=== PATIENT | female | born 1975 | race Two or more races ===

== ENCOUNTER → 2022-05-22 13:00 | Outpatient (BNVA) | payer OTHER, SELFPAY | PROVIDERS: PCP Internal Medicine Hematology & Oncology; Visit Provider Student in an Organized Health Care Education/Training Program | DX: R76.8 Other specified abnormal immunological findings in serum (principal); R41.3 Other amnesia | CPT/HCPCS: 99202 ==

== ENCOUNTER 2025-04-21 12:06 | Outpatient (AMB) | payer OTHER, SELFPAY ==
--- NOTE | 2025-04-21 12:24 | A.OFFVIS_ITS ---
Intake Visit Reasons: 6months f/u Allergies No Known Allergies Allergy (Verified 05/22/22 13:05) Medication List - Last Reconciled 04/21/25 by Odessa Limon MD aripiprazole 10 mg PO DAILY atorvastatin 20 mg PO DAILY buprenorphine-naloxone 4-1 mg (Suboxone) 1 film buccal Q24H buspirone 30 mg PO BID lamotrigine 150 mg PO BID lorazepam mg PO metformin ER 500 mg PO BID propranolol 60 mg PO BID sumatriptan succinate mg PO PRN tirzepatide (weight loss) (Zepbound) mg subcut zolpidem 10 mg PO BEDTIME PRN HPI Comments Details: This is a 50-year-old woman with a history of anxiety and depression, diabetes and hyperlipidemia who has noted intermittent jerky tremor in her hands, primarily on the leftsince early 2023.? It comes and goes but is now noticeable most days.? It is more noticeable if she is stressed.? There is no family history of tremor.? She recently started propranolol 60 mg a day.? She has been on lamotrigine, and Abilify for 2 years for her psychiatric diagnosis.? She has no mobility problems.? There is no rest tremor. [facility] Medical History (Updated 04/21/25 @ 12:29 by Odessa Limon MD) Tremor Lumbar disc disease Migraines GERD (gastroesophageal reflux disease) Tobacco abuse Chronic back pain Opiate dependence Anxious depression Nephrolithiasis Myalgia Palpitations Abnormal mammogram Surgical History Insertion of Nexplanon Abnormal mammogram Hx of section Family History Mother Bladder cancer Hypertension Anxiety and depression Maternal Grandfather Throat cancer Coronary artery disease Maternal Grandmother Diabetes Hypertension Sister Diabetes Anxiety and depression Maternal Aunt Multiple sclerosis Social History Household Members: Spouse Alcohol intake: current Alcohol intake frequency: holidays/special occasions only Patient Tobacco Use Status: Current everyday Tobacco user Tobacco use type: Cigarette Cigarette Packs Per Day: 0.5 Current occupational status: employed Current occupation: collections agent Review of Systems Const Details: Sleep:? Difficulty getting to sleepadmits.? Difficulty maintaining sleepadmits.? Urge to move legsdenies.? Teeth grindingdenies.? Shouting or Kicking during sleep denies.? Abnormal behavior during sleepdenies.? Excessive sleepdenies.? Snoring admits.? Daytime sleepinessdenies. ???General/Constitutional:? Change in appetitedenies.? Chillsdenies.? Fatigueadmits.? Feverdenies.? Weight gaindenies.? Weight lossdenies. ???Ophthalmologic:? Blurred visionadmits.? Diminished visual acuitydenies. ???ENT:? Stuffinessdenies.? Decreased hearingdenies.? Dry mouthdenies.? Ear paindenies.? Nosebleeddenies.? Ringing in the earsdenies.? Sinus paindenies.? Sore throat denies.? Swollen glandsdenies. ???Endocrine:? Cold intolerancedenies.? Excessive thirstdenies.? Frequent urinationdenies.? Heat intolerancedenies. ???Respiratory:? Shortness of breathdenies.? Chest paindenies.? Coughdenies. ???Breast:? Breast lumpdenies.? Nipple dischargedenies. ???Cardiovascular:? Chest pain at restdenies.? Chest pain with exertiondenies.? Claudicationdenies .? Dizzinessdenies.? Fluid accumulation in the legsdenies.? Irregular heartbeat denies.? Palpitationsdenies. ???Gastrointestinal:? Abdominal paindenies.? Constipationdenies.? Diarrheadenies.? Difficulty swallowingdenies.? Heartburnadmits.? Nauseadenies.? Rectal bleedingdenies. ???Hematology:? Easy bruisingdenies.? Prolonged bleedingdenies. ???Genitourinary:? Frequent urinationdenies.? Urgencydenies.? Incontinencedenies.? Erectile Dysfunctiondenies. ???Musculoskeletal:? Neck painadmits.? Back painadmits.? Muscle achesadmits.? Painful jointsadmits.? Sciaticadenies.? Weaknessdenies. ???Podiatric:? Difficulty walkingdenies.? Foot numbnessdenies. ???Neurologic:? Difficulty swallowingdenies.? Balance difficultydenies.? Coordinationnormal.? Difficulty speakingdenies.? Dizzinessadmits.? Faintingdenies.? Gait abnormality denies.? Headacheadmits.? Loss of strengthdenies.? Loss of use of extremity denies.? Low back paindenies.? Memory lossdenies.? Seizuresdenies.? Ticsdenies.? Tingling/Numbnessadmits.? Transient loss of visiondenies.? Tremoradmits. ???Psychiatric:? Anxietyadmits.? Auditory/visual hallucinationsdenies.? Delusionsdenies.? Depressed moodadmits.? Stressorsadmits.? Substance abusedenies.? Suicidal thoughtsdenies. Physical Exam Neuro Other: Neurological: Abnormal neurological findings:??minimal intermittent high frequency low amplitude tremor noted in the extended hand position. No s/o PD.?Mental Status:??alert and oriented X 3,?Normal attention, orientation, memory and affect.?Cranial Nerves:??Pupils are equal, round and reactive to light. Fundoscopy shows normal disc bilaterally. External occular muscles are intact. Visual pederson are full, no ptosis. Face is symmetrical, no facial weakness or droop. Facial sensations are normal. Tongue protrudes in midline. Palate elevates symmetrically. Shoulder shrugging is normal..?Motor Examination:??Normal muscle tone, bulk and strength,?No atrophy or fasciculations,?No drift of the extended upper extremities,?Deep tendon reflexes are 2+?,?Plantars are flexor?.?Motor Strength:?Proximal Muscles (out of 5):5 Distal Muscles (out of 5):5Neck Flexors (out of 5):5Neck Extensors (out of 5):5 Deltoid (out of 5):5Biceps (out of 5):5Triceps (out of 5):5Serratus Anterior (out of 5):5Wrist Extensors (out of 5):5APB (out of 5):5Finger Spread (out of 5):5Ileopsoas (out of 5):5Quadriceps (out of 5):5Hamstrings (out of 5):5Tibialis Anterior (out of 5):5Peronei (out of 5):5EDB (out of 5):5Gastrocnemius (out of 5):5Straight Leg Raising:??90 degrees.?Sensory Exam:??Normal light touch, temperature, pinprick, vibration and joint-position sensations?,?Rhomberg sign is absent.?Coordination:??no ataxia,?no titubation,?lhiyuy-uv-rqhs, epcq-caik-eyut test and rapid alternating movements were normal.?Gait Exam:??Within normal limits.?Cerebellar Signs:??Qjhdof-tu-xmam and bbjd-fn-kqau is normal,?no dysdiadochokinesia?.?Extrapyramidal System:??Tremor as above. No rigidity with normal facial expressions,?No bradykinesia, no bradyphrenia. Normal arm swing and posture. No propulsion or retropulsion.?Speech:??Normal,?no dysphasia or dysarthria..? Mini Mental Status Exam: Level of Consciousness:??Alert.?Orientation:??Knows correct year, month, date, day and season,?Knows correct city, county and state. Knows correct location and floor.?Registration:??Able to register 3 objects.?Attention:??Serial 7's performed accurately.?Recall:??Able to recall 3 out of 3 objects.?Language:??Normal spontaneous speech, fluency, repetition,naming, comprehension, reading and writing.?Total Score:??30/30.? Assessment & Plan Assessment & Plan (1) Tremor: Comment: Essential tremor exacerbated by stress versus Abilify-induced tremor. Less likely from buspirone Code(s): R25.1 - Tremor, unspecified Category: Medical Plan Increase propranolol to 60 mg bid. Continue all other meds. Medications: New propranolol 60 mg PO BID 60 tabs 5RF 30 days Coding Level of Care Code Est Pt Level 4 (50199) Diagnoses Tremor R25.1
--- OUTSIDE RECORDS SUMMARY | 2025-04-21 14:54 | XMS_ITS | Encounter Summary ---
Author Organization [facility] Address [address] [place] [address] Care Team Providers Care Measuring Clerk Name Role Phone Javier Capellan MD Primary Care Provider [phone] Reason for Visit * Reason Onset Date Comments prior auth 04/15/2025 Encounter Details Date Type Department Care Team (Late st Contact Info) Description 04/15/2025 Telephone Internal Medicine - [facility] [address] [place] [address] Javier Capellan MD [address] [place] [id number] Social History Tobacco Use Types Packs/Day Years Used Date Smoking Tobacco: Every Day Cigarettes 1 36.1 Started: 03/28/1989 Smokeless Tobacco: Never Alcohol Use Standard Drinks/Week Comments Yes 0 (1 standard drink = 0.6 oz pur e alcohol) RARE Housing Instability Answer Date Recorde d Are you worried that in the next 2 months you may not have stable housing? No 07/29/2024 Food Access & Nutrition Answer Date Rec orded Do you have access to a vari ety of food including fruits and vegetables? Yes 07/29/2024 Access to Healthcare Answer Date Record ed Within the last 3 months, ho w many times did you visit the emergency department for your medical care? 0 07/29/2024 Health Literacy Answer Date Recorded How often do you need to hav e someone help you when you read instructions, pamphlets, or other written material from your doctor or pharmacy? Never 07/29/2024 Caregiver: How often do you need to have someone help you when you read instructions, pamphlets, or other written material from your doctor or pharmacy? Not on file 07/29/2024 Financial Risk Answer Date Recorded How hard is it for you to pa y for the very basics like food, housing, medical care, and air conditioning / heating? Not very hard 07/29/2024 Transportation Answer Date Recorded Has the lack of transportati on kept you from meetings, work, or from getting things needed for daily living? No Has the lack of transportati on kept you from medical appointments or from getting medications? No 07/29/2024 Social Isolation Answer Date Recorded How often do you feel lonely or isolated from ose around you? Never 07/29/2024 Food Risk Answer Date Recorded Within the past 12 months we worried whether our food would run out before we got money to buy more. Never true 07/29/2024 Within the past 12 months th e food we bought just didn't last and we didn't have money to get more. Never true 07/29/2024 Dependent Care Answer Date Recorded Do you need help finding or paying for care for your loved ones. For example, early childhood education specialist or elderly care for an older adult? No 07/29/2024 Education Answer Date Recorded Do you think completing more education or training, like finishing a GED, going to college, or learning a trade, would be helpful for you? No 07/29/2024 Employment and Income Answer Date Recor ded During the last four weeks, have you been actively looking for work? No 07/29/2024 Living Situation Answer Date Recorded What is your living situation? Unrecognized valu e 07/29/2024 Interpersonal Safety Answer Date Record ed Physical Abuse Unrecognized value 11/30/2024 Verbal Abuse Unrecognized value 11/30/2024 Comments No Sex and Gender Information Value Date Recorded Sex Assigned at Female 08/21/2024 10:30 AM EDT Legal Sex Female 11:22 AM EDT Gender Identity Female 08/21/2024 10:30 AM EDT Sexual Orientation Straight 08/21/2024 10 :30 AM EDT documented as of this encounter Progress Notes * Yesenia Giles MA - 04/15/2025 4:21 PM EST Images from the original note were not included. Approved Prior authorization approved Payer: [employer] [phone] Note from payer: CaseId:[id number];Status:Approved;Review Type:Prior Auth;Coverage Start Date:04/15/2025;Coverage End Date:06/09/2025; Approval Details Authorized from April 15, 2025 to June 09, 2025 Electronic appeal: Not supported Prior auth initiated by: Yesenia Giles MA * Yesenia Giles MA - 04/15/2025 3:46 PM EST Electronic pa requested * Javi Harris - 04/15/2025 3:40 PM EST Prior Authorization for Medication-do not complete and send this encounter unless you have the fax from the pharmacy. Is this a Cover My Meds request: Wilmer of Medication Zepbound Dose of Medication 15mg What is the RX # from the faxed refill? N/A How does patient take this med? Injection What Pharmacy did the fax come from: NA Pharmacy fax #: n?[id number] [facility] Information from fax: What Prescription Plan does the patient have? [facility] Patient is requesting urgent PA. She is due Saturday documented in this encounter Plan of Treatment Upcoming Encounters Date Type Department Care Team (Late st Contact Info) Description 04/27/2025 6:50 PM EST Appointment Radiology Department [address] [address] 06/01/2025 1:00 PM EST Office Visit Internal Medicine - [address] [address] Javier Capellan MD [address] [place] [address] 07/30/2025 4:00 PM EST Office Visit Internal Medicine - [address] [place] [address] Javier Capellan MD [address] [place] [address] documented as of this encounter Visit Diagnoses Not on filedocumented in this encounter Additional Health Concerns Assessment Noted Time PHQ-9 Depression Total Score: 4 07/29/19 25 11:46 AM EST documented as of this encounter Care Teams Measuring Clerk Relationship Specialty Start Date End Date Javier Capellan MD [address] [place], [place] [address] [address] PCP - General Internal Medicine 04/15/24 documented as of this encounter
--- OUTSIDE RECORDS SUMMARY | 2025-04-21 14:55 | XMS_ITS | Continuity of Care Document ---
Author Organization [place] [facility], [facility] Address [address] [place] [address] Care Team Providers Care Professor Of Pathology Name Role Phone BEBA ROJAS Primary Care Provider Assessment No assessment recorded. Plan of Treatment Reminders Order Date Submit Date Provider Last Modified By Organization Details Last Modified Time Details Appointments None record ed. Lab None record ed. Referral None record ed. Procedures None record ed. Surgeries None record ed. Imaging None record ed. Medication Orders None record ed. Patient TargetsNo targets recorded. Patient InstructionsNo instructions recorded. Reason for Referral None Reported. Problems Name Problem SNOMED Code Status Onset Date Resolution Date Notes Provider Name and Address Organization Details Recorded Time Mass of neck 348073430 Active 2021 Localized swelling, mass and lump, neck; Note: Date Diagnosed: 11/17/2021 4:43 PM (R22.1) Not Available [facility] 4 02:42:17 Neck swelling 863027888 Active 2021 Localized swelling, mass and lump, neck; Note: Date Diagnosed: 11/17/2021 4:43 PM (R22.1) Not Available [facility] 4 02:42:17 Posterior rhinorrhe a 70537083 Active 2021 Postnasal drip; Note: Date Diagnosed: 01/22/2022 5:47 AM (R09.82) Not Available [facility] 4 02:42:12 Tobacco user 067515044 Active 2021 Tobacco use; Note: Date Diagnosed: 01/22/2022 5:47 AM (Z72.0) Not Available [facility] 4 02:42:17 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; Note: Date Diagnosed: 01/22/2022 5:46 AM (D11.0) Not Available [facility] 4 02:42:18 Chronic rhinitis 01720406 Active 2021 Chronic rhinitis; Note: Date Diagnosed: 01/22/2022 5:46 AM (J31.0) Not Available [facility] 4 02:42:12 Edema of uvula 323619010 Active 2024 ROMELIA ZAMORANO MD [address] [place] [address],[place] [address], [place], [address] , [place] [facility] 5 15:46:20 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 ROMELIA ZAMORANO MD [address] [place] [address],[place] [address], [place], [address] , [place] [facility] 15:46:59 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 Procedures Surgical History Date Name Laterality Status Provider Name and Address Organization Details Recorded Time 12/01/19 25 parotidectomy completed MD Mamadou GARDUNO [facility],[place] [address] [place], [address], [place] [facility] 11/30/2024 10:19:00 08/18/19 25 Biopsy Oropharynx completed MD Mamadou GARDUNO [facility],[place] [address] [place], [address], [place] [facility] 08/19/2024 11:01:51 Imaging Results None recorded. Procedure Notes None recorded. Medical Equipment None Reported. Allergies No known drug allergies Medications Name Sig Start Date Stop Date Status Note LastModified by Organization Details LastModified Time amoxicill in 500 mg capsule 08/17 completed Not Available Not Available Not Available atorvasta tin 40 mg tablet TAKE 1 TABLET BY MOUTH EVERY DAY active Not Available Not Available No t Available lamotrigi ne 150 mg tablet TAKE 1 TABLET BY MOUTH TWICE A DAY active Not Available Not Available No t Available trazodone 50 mg tablet TAKE 1 TABLET BY MOUTH NIGHTLY NEEDED 08/17 completed Not Available Not Available Not Available azithromy gautam 250 mg tablet TAKE 2 TABLETS BY MOUTH TODAY, THEN TAKE 1 TABLET DAILY FOR 4 DAYS DIRECTED 08/17 completed Not Available Not Available Not Available ibuprofen 800 mg tablet 08/17 completed Medicati on ID: [id number] B rand Name: ibuprofe n Send Method: E-Prescr ibed Sub s Allowed: subs OK Medic ationGen ericName : ibuprofe n Not Available Not Available Not Available propranol ol ER 60 mg capsule,2 4 hr,extend ed release TAKE 1 CAPSULE BY MOUTH EVERY DAY 12/07 completed Not Available Not Available Not Available glipizide ER 5 mg tablet, extended release 24 hr TAKE 1 TABLET BY MOUTH WITH MEALS DAILY 08/17 completed Not Available Not Available Not Available bupropion HCl SR 100 mg tablet,12 hr sustained -release 08/17 completed Medicati on ID: [id number] B rand Name: bupropio n HCl Send Method: E-Prescr ibed Sub s Allowed: subs OK Medic ationGen ericName : bupropio n HCl Not Available Not Available Not Available lorazepam 2 mg tablet TAKE 1 TABLET BY MOUTH TWICE A DAY NEEDED FOR ANXIETY FOR UP TO 7 DAYS active Not Available Not Available No t Available buspirone 10 mg tablet TAKE 2 TABLETS BY MOUTH 3 TIMES A DAY 12/07 completed Not Available Not Available Not Available propranol ol ER 80 mg capsule,2 4 hr,extend ed release TAKE 1 CAPSULE BY MOUTH EVERY DAY active Not Available Not Available No t Available gabapenti n 100 mg capsule Take 1 capsule nightly, can titrate to 3 capsules as tolerate d. 2024 active Not Available Not Available Not Avai lable zolpidem 10 mg tablet TAKE 1 TABLET BY MOUTH EVERY DAY AT BEDTIME NEEDED active Not Available Not Available No t Available metformin ER 500 mg tablet,ex tended release 24 hr DO NOT CRUSH, CHEW, OR SPLIT.TA KE 2 TABLETS 2 TIMES DAILY WITH MEAL active Not Available Not Available No t Available nicotine 7 mg/24 hr daily transderm al patch PLACE 1 PATCH ON THE SKIN 1 TIME EACH DAY AT THE SAME TIME. active Not Available Not Available No t Available buspirone 15 mg tablet 2021 active Medicati on ID: [id number] B rand Name: buspiron e Send Method: E-Prescr ibed Sub s Allowed: subs OK Medic ationGen ericName : buspiron e Not Available Not Available Not Available oxycodone 5 mg tablet Take 1-2 tablets every 8 hours as needed for breakthr ough pain for 2 days 2024 active Not Available Not Available Not Avai lable aripipraz ole 10 mg tablet TAKE 1 TABLET BY MOUTH EVERY DAY active Not Available Not Available No t Available chlorhexi dine gluconate 0.12 % mouthwash 08/17 completed Not Available Not Available Not Available oxycodone 10 mg tablet 08/17 completed Not Available Not Available Not Available buprenorp lópez 8 mg-naloxo ne 2 mg sublingua l film active Not Available Not Available Not Available Ozempic 1 mg/dose (4 mg/3 mL) subcutane ous pen injector INJECT 1 MG UNDER THE SKIN EVERY 7 (SEVEN) DAYS. 08/17 completed Not Available Not Available Not Available Wegovy 0.25 mg/0.5 mL subcutane ous pen injector INJECT 0.25MG INTO THE SKIN ONE TIME PER WEEK 08/17 completed Not Available Not Available Not Available Ozempic 0.25 mg or 0.5 mg (2 mg/3 mL) subcutane ous pen injector INJECT 0.25MG INTO THE SKIN ONE TIME PER WEEK 08/17 completed Not Available Not Available Not Available Zepbound 10 mg/0.5 mL subcutane ous pen injector INJECT 10 MG UNDER THE SKIN EVERY 7 DAYS active Not Available Not Available No t Available Zepbound 5 mg/0.5 mL subcutane ous pen injector INJECT 5 MG SUBCUTAN EOUSLY EVERY 7 DAYS 12/07 completed Not Available Not Available Not Available Zepbound 2.5 mg/0.5 mL subcutane ous pen injector INJECT 2.5 MG SUBCUTAN EOUSLY EVERY 7 DAYS 09/07 completed Not Available Not Available Not Available Zepbound 12.5 mg/0.5 mL subcutane ous pen injector INJECT 12.5 MG UNDER THE SKIN EVERY 7 DAYS. active Not Available Not Available No t Available Zepbound 7.5 mg/0.5 mL subcutane ous pen injector INJECT 7.5 MG UNDER THE SKIN EVERY 7 DAYS 12/07 completed Not Available Not Available Not Available Vitals None Recorded Social History None recorded. Functional Status None recorded. Mental Status None recorded. Family History Nothing Reported. Medical History Condition Response Anxiety Y Depression Y Gynecological HistoryNo gynecological history recorded. 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 Incision is well healed. 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 She may follow up as needed. Health Concerns Section Related Observation LastModified by Organization Detai ls LastModified Time None Recorded Concern Status LastModified by Organization Details LastModified Time None Recorded Payers Encounter Date Sequence Insurance Name Policy Number Policy Mckenzie Covered Member ID Mckenzie Member ID Guarantor Name 02/15/2025 1 [facility] (O) [id number] Criselda Morris [id number] Criselda Morris Notes Date Note Type Note Provider Name and Address Organization Details Recorded Time 02/15/2025 text/html Still some numbness in the neck along the neckPain is better Did not start the gabapentin due to capsule which gets stuck ROMELIA ZAMORANO MD [address] [place] [address],[place] [address], [place], [address], [place] [facility] 02/15/2025 16:50:29 OBGyn Episode No OBEpisode recorded.
--- OUTSIDE RECORDS SUMMARY | 2025-04-21 14:55 | XMS_ITS | Clinical Summary ---
Author Organization [facility] Address [address] [place] [address] [place] [address] Phone Care Team Providers Care Viscosity Tester Name Role Phone Ronak Tinoco MD, ELOY Primary Care Provide r Social History Tobacco Use Types Packs/Day Years Used Date Smoking Tobacco: Never Assessed Education Answer Date Recorded Are you interested in more education? Not on edi e 10/06/2022 Are you concerned about learning? Not on file 10/06/2022 No 10/06/2022 No 10/06/2022 Digital Access Answer Date Recorded No 11/06/2022 No 11/06/2022 Reliable internet access at home? Not on file 11/06/2022 Device with a working camera? Not on file Comments Unknown Sex and Gender Information Value Date Recorded Sex Assigned at Not on file Legal Sex Female 2:50 PM EDT Gender Identity Not on file Sexual Orientation Not on file Plan of Treatment Not on file Medical Devices Not on file [place] [address] [place] [address] [facility] [email or web address] [email or web address] Prepay TechnologiesMOHAWK VALLEY GENER[facility]ITAL[facility] Space-Time InsightMOHAWK VALLEY GENERAL HOSPITALO [place] [facility]OUNT MORRISPlay It GamingSAN CARL[facility] ACO [facility] Space-Time InsightMOHAWK VALLEY GENERAL HOSPITAL[facility] [place] [facility] MORRISENSE [employer] ACO Care Teams Viscosity Tester Relationship Specialty Start Date End Date Ronak Tinoco MD, ELOY [address] [place] [id number] [email or web address] PCP - General Interventional Radiology 12/20/21 Additional Source Comments The information contained in this document represents components of the legal health record. It is not the complete legal health record.[facility]
--- OUTSIDE RECORDS SUMMARY | 2025-04-21 14:55 | XMS_ITS | Data Portability ---
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 She chose to observe given the small size of the tumor at that time. She is now interested in discussing surgery. 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 She is otherwise asymptomatic from this perspective and is not interested in surgical intervention of this at this time. [email or web address] Not available 09/07/2024 13:47:03 12/03/2024 12/03/2024 The patient is doing well following parotidectomy. The LUCIUS drain was removed today without difficulty. The patient was instructed to call the office for increased swelling, fever, tenderness, or drainage. Wound care was discussed. I recommended avoidance of strenuous activity, heavy lifting or straining for 2 weeks. Pathology consistent with Warthin tumor. Patient requested refill of Oxycodone for breakthrough pain and prescription was provided. MassPat was reviewed. Finish antibiotics if prescribed and follow up as scheduled. All questions were answered. [email or web address] Not available 12/03/2024 16:16:38 12/07/2024 12/07/2024 The patient is doing well following parotidectomy. Sutures removed. Wound care was discussed. I recommended gentle neck stretching. Patient requested refill of Oxycodone for breakthrough pain and prescription was provided. [facility]Pat was reviewed. Follow up 1 month. [email or web address] Not available 12/08/2024 09:14:21 Plan of Treatment Reminders Order Date Submit Date Provider Last Modified By Organization Details Last Modified Time Details Appointments None recorded. Lab None recorded. Referral None recorded. Procedures None recorded. Surgeries parotidec rodríguez (SURG) 2024 025 [email or web address] Not available 12:56:[address], neck, w/ contrast 2024 025 [email or web address] [facility], [address], [address], [place], [address], 09:49:18 Medication Orders gabapenti n 100 mg capsule 2024 025 [facility], [address] [facility], [facility] [address], [place], [address], 14:30:37 oxycodone 5 mg tablet 2024 025 [facility], [address], [facility] [address], [place], [address], 16:01:27 oxycodone 5 mg tablet 2024 025 [id number], [address], [place], [address], 16:20:36 oxycodone 5 mg tablet 2024 025 [facility], [address] [facility], [address], [place], [address], 16:19:42 Patient TargetsNo targets recorded. Patient InstructionsNo instructions recorded. Reason for Referral None Reported. Results Created Date Observation Date Name Description Value Unit Range Abnormal Flag Note LastModifiedBy Organization Detail LastModifiedTime 09/25/1909/25/2024 PREP: EGFR W/CRE ATINI NE creatinine 0.68 mg/dL 0.57-1 .00 normal Not Available [facility] ([facility]) [address] [facility], [place], [address], 09/25/2024 09:10:30 09/25/19 25 09/25/2024 PREP: EGFR W/CRE ATINI NE eGFR 106 mL/mi n/1.7 3 >59 normal Not Available [facility] ([facility]) [address] [facility], [place], [address], 09/25/2024 09:10:30 09/25/19 25 09/25/2024 BUN BUN 11 mg/dL 6-24 normal Not Available [facility] ([facility]) [address] [facility], [place], [address], 09/25/2024 09:10:30 12/01/19 25 11/30/2024 TISSU E EXAM .note See Note Origi nal Order ing Provi deana: MARIANA GARCIA LUKE [facility] - Labor atory - [address], [address], [place] [id number] 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 - Lymph node with non-s pecif ic react ophelia guzman es and few inclu sions of saliv farnaz gland -type epith elium . - Parot id gland tissu e other andujar witho ut diagn ostic histo patho logic guzman e. - Inked speci men iris ns negat ophelia for tumor . Nando bell by Pradip Hernandez MD on 2024 at 8:[address] [facility] [address] [facility] [place], [address], 12/02/2024 08:53:39 12/01/19 25 11/30/2024 TISSU E EXAM gross description A. Neck, right paroti d: Label ed righ t par neck . Recei maryann in forma aung is a singl e, fairl y intac t, unori ented , 6 gram, 2.5 x 2.0 x 1.9 cm soft, yello w to red lobul ated porti on of tissu e, in keepi ng with saliv farnaz gland . The iris ns are inked blue and the speci men is seria lly secti oned seque ntial ly. The marisol guous cut surfa dickson show a christian to pale brown , circu mscri bed, focal ly cysti c, 1.7 x 1.4 x 1.2 cm mass which is less than 0.1 cm from the radia l surfa ce. The mass exude s minim al soft, brown , mucoi d mater ial. The minim al invol maryann tissu e is christian-y ellow to pink and glist ening . No other rock s are ident ified . There is a soft to rubbe ry, pink to red, 0.4 cm in great est diame ter attac hed lymph node. A digit al gross photo graph is taken . Repre senta tive secti ons are submi tted in five casse ttes. 1-4 nodul e in entir ety, one piece each 5-uni nvolv ed and one whole lymph node, two piece s TS Not Available [facility] [address] [place], [address], 12/02/2024 08:53:39 12/01/19 25 11/30/2024 TISSU E EXAM disclaimer Unles s other andujar speci fied, all tissu e is 10% NB forma aung fixed and paraf fin embed ded. Not Available [facility] [address] [place], [address], 12/02/2024 08:53:39 10/03/19 25 09/30/2024 CT, neck, soft tissu e, w/ contr ast No observ ation record ed. [facility] [place] [facility] [address] [address], [place], [address], 10/05/2024 14:20:46 12/01/19 25 11/30/2024 H&P No observ ation record ed. [facility] [address] [place], [address], 11/30/2024 11:01:58 12/01/19 25 11/30/2024 op note No observ ation record ed. [facility] [address] [facility] [place], [address], 11/30/2024 11:01:58 Result Notes None recorded. Problems Name Problem SNOMED Code Status Onset Date Resolution Date Notes Provider Name and Address Organization Details Recorded Time Mass of neck 678568949 Active 2021 Localized swelling, mass and lump, neck; Note: Date Diagnosed: 11/17/2021 4:43 PM (R22.1) Not Available [facility] 4 02:42:17 Neck swelling 499329791 Active 2021 Localized swelling, mass and lump, neck; Note: Date Diagnosed: 11/17/2021 4:43 PM (R22.1) Not Available [facility] 4 02:42:17 Posterior rhinorrhe a 54851154 Active 2021 Postnasal drip; Note: Date Diagnosed: 01/22/2022 5:47 AM (R09.82) Not Available [facility] 4 02:42:12 Tobacco user 190801206 Active 2021 Tobacco use; Note: Date Diagnosed: 01/22/2022 5:47 AM (Z72.0) Not Available [facility] 4 02:42:17 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 - [facility] 15:46:59 Neoplasm of parotid gland 440936028 Active 2024 ROMELIA ZAMORANO MD [address] [place] [address],[place] [address], [place], [address] , [facility] - [facility] 11:36:37 Postopera tive pain 219294137 Active 2024 ROMELIA ZAMORANO MD [address] [place] [address],[place] [address], [place], [address] , [facility] - [facility] 10:19:18 Problem Notes None recorded. Procedures Surgical History Date Name Laterality Status Provider Name and Address Organization Details Recorded Time 12/01/19 25 parotidectomy completed ROMELIA ZAMORANO MD [address] [place] [address],[place] [address], [place], [address], [facility] - [facility] 11/30/2024 10:19:00 08/18/19 25 Biopsy Oropharynx completed ROMELIA ZAMORANO MD [address] [place] [address],[address], [address], [facility] - [facility] 08/19/2024 11:01:51 Imaging Results None recorded. Procedure [...] mg tablet 08/17 completed Medicati on ID: [id number] B rand Name: ibuprofe n Send Method: [...] sustained -release 08/17 completed Medicati on ID: [id number] B rand Name: bupropio n HCl Send [...] mg tablet 2021 active Medicati on ID: [id number] B rand Name: buspiron e Send Method: [...] Not Available Not Available Not Available Vitals Date Recorded Body height Body mass index (BMI) Body weight Provider Name and Address Organization Details Last Updated DateTime 09/07/2024 162.56 cm 28.7 kg/m2 18363.93 g Criselda Eden MD - [facility] 09/07/2024 11:29:58 Date Recorded Body height Body mass index (BMI) Body weight Provider Name and Address Organization Details Last Updated DateTime 12/03/2024 162.56 cm 27.5 kg/m2 39647.78 g Leonela Simpson MD - [facility] 12/03/2024 15:11:37 Date Recorded Body height Body mass index (BMI) Body weight Provider Name and Address Organization Details Last Updated DateTime 12/07/2024 162.56 cm 27.5 kg/m2 39760.78 g Criselda Eden [facility] 12/07/2024 15:38:08 Social History None recorded. Functional Status None recorded. Mental Status None recorded. Family History Nothing Reported. Medical History Condition Response Anxiety Y Depression Y Gynecological HistoryNo gynecological history recorded. 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 We discussed the full removal would require operative interventi on given its sessile nature. She would feel more comfortabl e having a definitive diagnosis so we performed biopsy today which she tolerated well. Benign neeta plasm of parotid gland 47401945 D11.0 There appears to have been only marginal growth since her last visit. She has no tenderness to palpation. Previous biopsy showed Warthin's. We reviewed the risks of parotidect mary lou. She does not think she is ready for surgery at this time. [id number] ROMELIA ZAMORANO MD [facility] [address] [place] [address] 09/07/2024 11:24:10 09/07/2024 11:41:39 Neoplasm of parotid gland 677684332 D49.0 The patient is indicated for and a good candidate for parotidect mary lou. I discussed the risks, benefits, and alternativ es to parotidect mary lou with facial nerve dissection . I specifical ly discussed the risk of temporary or permanent facial nerve paralysis. I discussed the risk of gustatory sweating (Roosevelt syndrome), as well as the risk of first bite syndrome. I discussed the surgical incision as well as the resulting scar and paresthesi a associated with the incision. I discussed the risk of postoperat ophelia bleeding or postoperat ophelia sialocele both requiring surgical drainage. I discussed the need for a drain to be in place after surgery. I discussed the risk of an infection. We did discuss that surgical complicati ons are higher when she is actively using tobacco and I did recommend smoking cessation in the perioperat ophelia period. Patient understand s the risk and like to proceed. We will schedule surgery at a mutually convenient time. Will get CT prior to surgery. [id number] MERCEDES ZHANG PA-C [facility] [address] [place] [address] 12/03/2024 14:58:22 12/03/2024 15:33:35 Benign neoplasm of parotid gland 90677034 D11.0 Postoperative visit 1836 50468 Z48.89 40887789 Postoperative pain 11616 9007 G89.18 898173 [id number] ROMELIA ZAMORANO MD [facility] [address] [facility] [place] [address] 12/07/2024 15:20:47 12/07/2024 16:01:31 Benign neoplasm of parotid gland 89347690 D11.0 Postoperative pain 64814 9007 G89.18 994550 [id number] ROMELIA ZAMORANO MD [facility] [address] [facility] [place] [address] 01/01/2025 14:09:46 01/01/2025 14:34:11 Postoperative pain 293369165 G89.18 [id number] She is healing well after parotidect mary lou. There is some scar tissue especially in right level 2B, which I counseled her she can gently massage to this area now.As her sensation comes back, she is having some neuropathi c pain. I recommende d trying gabapentin . We discussed this may potentiate side effects from some of her other medication s. I recommende d starting with low dosing. Given that her bouts of pain are relatively short-live d within 20 to 45 minutes, I would not recommend any medication s like opiates. Hopefully the symptoms should improve with time.Follo w-up 6 weeks. [id number] ROMELIA ZAMORANO MD [facility] [address] [facility] [place] [address] 02/15/2025 15:54:59 02/15/2025 16:16:01 Benign neoplasm of parotid gland 22684538 D11.0 Pain is better, she still has some facial and neck numbness which will hopefully improve with time. Incision is well healed. 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 She may follow up as needed. Health Concerns Section Related Observation LastModified by Organization Detai ls LastModified Time None Recorded Concern Status LastModified by Organization Details LastModified Time None Recorded Advance Directives Directive None Recorded Payers Insurance Date Sequence Insurance Name Policy Number Policy Mckenzie Covered Member ID Mckenzie Member ID Guarantor Name 08/12/2024 2 [facility] [employer] (MEDICAID HMO) [id number] Criselda Morris [id number] Criselda Morris 12/03/2024 1 [facility] [employer] (MEDICAID HMO) [id number] Criselda Morris [id number] Criselda Morris 02/12/2025 1 [facility] (O) [id number] Criselda Morris [id number] Criselda Morris Notes Date Note Type Note Provider Name and Address Organization Details Recorded Time 09/07/2024 text/html 49-year-old female here to discuss right parotidectomy. 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 She chose to observe given the small size of the tumor at that time. She is now interested in discussing surgery. 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 She is otherwise asymptomatic from this perspective and is not interested in surgical intervention of this at this time. ROMELIA ZAMORANO MD 100 [facility],[address], [address], [place] - [facility] 09/07/2024 13:48:38 12/03/2024 text/html ROS as noted in the HPI 49-year-old female presents status post right parotidectomy with Dr. Zamorano on 11/30/2024. She is doing well postoperatively without concerns. Taking Tylenol every 6 hours for pain and Oxycodone for breakthrough pain. Continues to have neck pain. LUCIUS drain with less than 10 cc of drainage in the past 24 hours. DEB DICKINSON MD 100 [facility],[address], [address], [place] - [facility] 12/03/2024 17:25:28 12/07/2024 text/html She is still sore inthe neck. Covering the incision. ROMELIA ZAMORANO MD [address] [facility],[place] [address], [place], [address], [place] - [facility] 12/08/2024 09:15:04 01/01/2025 text/html 49 yo F presents for follow upnumbness in the face improvinggetting some sharp pain up and down the face into the earunbearable into the earcomes and goes through the day 1-3 times, 20-45 minutes at a timeno correlation with eatingsince started getting some feeling back ROMELIA ZAMORANO MD [address] [facility],[address], [address], [place] - [facility] 01/01/2025 20:47:46 02/15/2025 text/html Still some numbness in the neck along the neckPain is better Did not start the gabapentin due to capsule which gets stuck ROMELIA ZAMORANO MD [address] [place] [address], [place], [address], [place] - [facility] 02/15/2025 16:50:29 OBGyn Episode No OBEpisode recorded.
--- OUTSIDE RECORDS SUMMARY | 2025-04-21 14:55 | XMS_ITS | Clinical Summary ---
Author Organization [facility] Address [address] [place] [address] Care Team Providers Care Pantograph Watcher Name Role Phone Javier Capellan MD Primary Care Provider [phone] Allergies No known active allergies Medications busPIRone (BUSPAR) 10 mg tablet Take 1 tablet (10 mg total) by mouth 3 (three) times a day. 4 Active SUMAtriptan (IMITREX) 25 mg tablet Take 1 tablet (25 mg total) by mouth 1 (one) time if needed for migraine. 4 Active lamoTRIgine (LaMICtal) 150 mg tablet Take 1 tablet (150 mg total) by mouth 2 (two) times a day. 3 Active ARIPiprazole (ABILIFY) 2 mg tablet Take 1 tablet (2 mg total) by mouth 1 (one) time each day. 3 Active zolpidem (AMBIEN) 10 mg tablet Take 1 tablet (10 mg total) by mouth at bedtime. 6 Active FREESTYLE LANCETS MISC Use to check fasting blood glucose once daily in the a.m. 2 Active blood sugar diagnostic (FreeStyle Lite Strips) test strip Use to check fasting blood glucose once daily in the a.m. 2 Active atorvastatin (LIPITOR) 40 mg tablet TAKE 1 TABLET BY MOUTH EVERY DAY 90 tablet 1 5 Active metFORMIN XR (GLUCOPHAGE-XR) 500 mg 24 hr tablet Do not crush, chew, or split.TAKE 2 TABLETS 2 TIMES DAILY WITH MEAL 360 tablet 1 5 Active propranolol LA (INDERAL LA) 60 mg 24 hr capsule Take 80 mg by mouth 1 (one) time each day. 5 Active buprenorphine-nal oxone (SUBOXONE) 8-2 mg per SL film 0.5 films 1 (one) time each day. Max Daily Amount: 0.5 films Active famotidine (PEPCID) 10 mg tablet Take 1 tablet (10 mg total) by mouth 1 (one) time each day. Active LORazepam (ATIVAN) 2 mg tablet Take 1 tablet (2 mg total) by mouth 2 (two) times a day if needed for anxiety for up to 7 days. Max Daily Amount: 4 mg 14 tablet Active nicotine (NICODERM CQ) 7 mg/[address] 1 patch on the skin 1 (one) time each day at the same time. 30 each 5 Active Additional Information Patient not taking.Reported on 03/15/2025 tirzepatide, weight loss, (Zepbound) 15 mg/0.5 mL injectionIndicati ons:Uncontrolled type 2 diabetes mellitus with hyperglycemia ([facility] V24, [facility] V28) Inject 0.5 mL (15 mg total) under the skin every 7 (seven) days. 2 mL 5 5 026 Active Active Problems Problem Noted Date Diagnosed Date Depression 03/11/2024 Lumbar spondylosis 03/11/2024 Overview (03/11/2024): Last Assessment & Plan: Patient describes low back pain, pain on and off in the left posterior leg (patient states the leg pain started possibly about 6 weeks ago, is not a daily pain). She states she thought she was coming here to see neurology, did not realize it was to review her lumbar spine MRI and low back issues. She has multiple symptoms that have been progressively worsening since 2014, she states she had a positive lupus test in 2014 and feels a lot of the symptoms are related to that, although her testing was not fully diagnostic for lupus. It started with joint pains and hair loss, she has pain in her hands, knees, bottom of her feet left >right in the heels, arches and balls of the feet, she has had cortisone injections in her feet. She gets constant muscle pain and spasms in her upper trapezius and neck, aches and shooting pains in the arms and legs, headaches, memory loss, concentration issues. She is also dealing with insomnia, anxiety and extreme fatigue. She has diabetes but has been under good control with her meds, she thinks her last A1c was in the sevens. In the past she went to [facility] around 2014 for lumbar cortisone injections, based on memory she thinks it helped for a time. She has not recently done any conservative treatments. Patient had MRI lumbar spine 07/05/2022 at [facility] that shows small central disc bulge L4-5, small disc bulging left of midline with annular tear L5-S1. Overall mild findings on her MRI. I reviewed the images with the patient in detail on the computer. Ms. Morris has history of chronic low back pain, recent onset of left posterior leg pain, but not daily pain. She also has a variety of other symptoms, has not yet gone for her blood work that rheumatology ordered, states she will do that as soon as possible. She also thinks she has an upcoming appointment with neurology, it sounds like it could be for EMG/NCS study, she does not know where she was referred to. We talked about trying conservative treatment options like PT, aquatic PT, acupuncture or injections. At this point she is interested in trying acupuncture which she has never tried before, I also gave her a prescription for PT if she decides to try that. I asked her to follow-up with me in 2 to 3 months when she has her other evaluations done so we can go over all the information. All questions answered. She will call with any concerns or questions. Migraine 03/11/2024 Hyperlipidemia 03/27/2022 Uncontrolled type 2 diabetes mellitus with hyperglycemia ([facility] V24, [facility] V28) 11/21/2021 Abnormal mammogram 06/23/2021 Overview (03/11/2024): Diagnostic mammogram 06/23/21: Probable apocrine metaplasia corresponding to mammographic density in the right breast. Due for repeat ultrasound in 6 months (12/29) Palpitations 02/19/2018 Overview (03/11/2024): Reassuring Holter 02/2018, frequent PACs Myalgia 03/15/2016 Overview (03/11/2024): Low level positive RF, felt to be noncontributory apparently by rheumatology Nephrolithiasis 03/15/2016 Anxiety and depression 03/13/2016 Overview (03/11/2024): BHN prescribing Chronic back pain 03/13/2016 Overview (03/11/2024): PVSS GERD (gastroesophageal reflux disease) 6 Tobacco use disorder 03/13/2016 Overview (03/11/2024): Chantix caused GI SE's Encounters Date Type Department Care Team Description 04/15/2025 Telephone Internal Medicine - [address] [phone] Javier Capellan MD 03/15/2025 3:30 PM EDT Office Visit Internal Medicine - [address] [phone] Gerardo Guy PA Uncontrolled type 2 diabetes mellitus with hyperglycemia ([facility] V24, [facility] V28) (Primary Dx) from Last 3 Months Immunizations Immunization Administration Dates Next Due Influenza Quadravalent, MDCK , 0.5ml, preservative free (Flucelvax) 6mo and older 05/07/2023,05/09/2022 Influenza Quadravalent, MDCK , 0.5ml, with preservative (Flucelvax) 6mo and older 03/18/2024,04/16/2017 Influenza trivalent, 0.5mL, preservative free (Fluarix; FluLaval; Fluzone) ages 6mo and older (Afluria) 3 years and older 03/13/2016 Pneumococcal conjugate 20 va lent (Prevnar 20, PCV 20) 2mo and older 07/29/2024 Pneumococcal polysaccharide 23 valent (Pneumovax 23) 2yo and older 10/05/2015 Tdap Tetanus diptheria acell ular pertussis (Boostrix; Adacel) 7yo and older 07/29/2024 Surgical History Surgery Date Site/Laterality Comments SECTION 08/23/2007 PROCEDURE: HISTORICAL DELIVERY OTHER SURGICAL HISTORY 2020 PROCEDURE: HISTORY OTHER; COMMENT: Dental implants SECTION, LOW TRANSVERSE Medical History Medical History Date Comments Anxiety DX:Anxiety Lumbar disc disease DX:Lumbar di sc disease Depression DX:Depression HLD (hyperlipidemia) DX:HLD (hyp erlipidemia) Migraine DX:Migraine Nephrolithiasis DX:Nephrolithias is stones Obesity DX:Obesity Psoriasis DX:Psoriasis Plantar fasciitis, bilateral DX: Plantar fasciitis, bilateral Seasonal allergies DX:Seasonal a llergies Type 2 diabetes mellitus wit hout complications ([facility] V24, [facility] V28) DX:Type 2 naomi betes mellitus without complications ([facility]) Sleep apnea GERD (gastroesophageal reflux disease) Chronic pain disorder Arthritis Joint pain Dysphagia Opiate dependence ([facility] V 24, [facility] V28) Family History Medical History Relation Name Comments Breast cancer Aunt m 50s Coronary artery disease Maternal Grandfather Other cancer Maternal Grandfather throat cancer Diabetes Maternal Grandmother Hypertension Maternal Grandmother Bladder Cancer Mother Depression Mother Hypertension Mother Other cancer Mother bladder Diabetes Sister 1 Depression Sister 2 Relation Name Status Comments Aunt m 50s Maternal Grandfather Maternal Grandmother Mother Sister 1 Sister 2 Social History Tobacco Use Types Packs/Day Years Used Date Smoking Tobacco: Every Day Cigarettes 1 36.1 Started: 03/28/1989 Smokeless Tobacco: Never Tobacco Cessation:Ready to Q uit: Not Asked; Counseling Given: Not Answered Alcohol Use Standard Drinks/Week Comments Yes 0 [...] do you feel lonely or isolated from th ose around you? Never 07/29/2024 Food Risk [...] care for your loved ones. For example, director child abuse therapy or elderly care for an older adult? [...] Orientation Straight 08/21/2024 10 :30 AM EDT Obstetrics History Last Filed Vital Signs Vital Sign Reading Time Taken Comments Blood Pressure 110/64 03/15/2025 3:35 PM EDT Pulse 73 03/15/2025 3:35 PM EDT Temperature 36.6 C (97.9 F) 11/30/2024 11:54 AM EDT Respiratory Rate 20 11/30/2024 11:54 AM EDT Oxygen Saturation 95% 11/30/2024 11:54 AM EDT Inhaled Oxygen Concentration - - Weight 69 kg (152 lb 3.2 oz) 03/15/2025 3:35 PM EDT Height 162.6 cm (5' 4 ) 11/30/2024 6:32 AM EDT Body Mass Index 26.13 11/30/2024 6:32 AM EDT Plan of Treatment Upcoming Encounters Date Type Department Care Team (Late st Contact Info) Description 04/27/2025 6:50 PM EST Appointment Radiology Department [address] [phone] 06/01/2025 1:00 PM EST Office Visit Internal Medicine - [address] [phone] Javier Capellan MD [address] [place] [address] 07/30/2025 4:00 PM EST Office Visit Internal Medicine - [address] [phone] Javier Capellan MD [address] [place] [phone] Health Maintenance Due Date Last Done Comments Hepatitis A Vaccines (1 of 2 - Risk 2-dose series) 1993 Hepatitis B Vaccines (1 of 3 - 19+ 3-dose series) 1993 HIV Screening 09/27/2021 Zoster Vaccines (1 of 2) 2024 Diabetes: Annual Foot Exam 08/12/2024 08/13/2023 COVID-19 Vaccine ( season) 2025 12/07/2021, 10/18/2020, 09/27/2020 Influenza Vaccine (#1) 2025 , 05/07/2023, 05/09/2022, Additional history exists Colorectal Cancer Screening: Stool Based Tests (FOBT/FIT) 06/22/2025 06/22/2024 Diabetes: Blood Sugar Control Test (HGBA1C) 07/15/2025 01/12/2025, 09/29/2024, 05/13/2024, Additional history exists Social Influencers of Health Screening 07/29/2025 07/29/2024 Lung Cancer Screening (Low Dose CT) 08/25/2025 08/25/2024 Breast Cancer Screening 09/16/2025 09/17/19 24, 05/22/2022, 06/23/2021, Additional history exists Diabetes: Annual Urine Albumin-Creatinine Ratio (uACR) 09/29/2025 09/29/2024, 05/07/2023 Diabetes: Annual GFR (Glomerular Filtration Rate) 11/10/2025 11/10/2024, 09/01/2024, 01/21/2024, Additional history exists Diabetes: Annual Retina Eye Exam 12/22/2025 12/22/2024, 12/18/2023 Cervical Cancer Screening: HPV 11/21/2028 11/22/2023 Cholesterol Screening (Lipid Panel) 09/01/2029 09/01/2024, 08/13/2023 DTaP,Tdap,and Td Vaccines (2 - Td or Tdap) 07/29/2034 07/29/2024 RSV Immunization Adult Patients (1 - 1-dose 75+ series) 2049 Hepatitis C Screening Completed 12/30/2018 Colorectal Cancer Screening: FIT-DNA (Cologuard) Discontinued 07/06/2024, 07/06/2024, 07/06/2024 Depression Screening Completed 07/29/2024, 03/18/20 24 Pneumococcal Vaccine: 50+ Years Completed 07/29/2024, 10/05/2015 HIB Vaccines Aged Out No longer eligi ble based on patient's age to complete this topic HPV Vaccines Aged Out No longer eligi ble based on patient's age to complete this topic IPV Vaccines Aged Out No longer eligi ble based on patient's age to complete this topic MMR Vaccines Aged Out No longer eligi ble based on patient's age to complete this topic Meningococcal ACWY Vaccine Aged Out N o longer eligible based on patient's age to complete this topic Meningococcal B Vaccine Aged Out No l onger eligible based on patient's age to complete this topic RSV Immunization Patients Under 20 months Aged Out No longer eligible based on patient's age to complete this topic Varicella Vaccines Aged Out No longer eligible based on patient's age to complete this topic Procedures Procedure Name Priority Date/Time Associated Diagnosis Comments HEMOGLOBIN A1C Routine 01/12/2025 3:53 PM EDT Uncontrolled type 2 diabetes mellitus with hyperglycemia ([facility] V24, [facility] V28) EXTERNAL DIABETIC RETINA EYE EXAM 12/22/2024 BASIC METABOLIC PANEL Routine 11/10/2024 3:38 PM EDT Pre-op testing MICROALBUMIN CREATININE URINE RATIO Routine 09/29/2024 4:10 PM EDT Uncontrolled type 2 diabetes mellitus with hyperglycemia ([facility] V24, [facility] V28) LIPID PANEL WITH REFLEX TO DIRECT LDL Routine 09/01/2024 4:03 PM EDT Mixed hyperlipidemia CT LUNG SCREENING Routine 08/25/2024 4:0 7 PM EDT Encounter for screening for lung cancer Cigarette smoker LAB COLOGUARD COLON CANCER SCREEN Routine 07/06/2024 1:15 PM EST Colon cancer screening DEPRESSION SCREENING Routine 03/18/2024 HPV Routine 11/22/2023 SCREENING MAMMOGRAPHY BI 2-VIEW BREAST INC CAD Routine 09/17/2023 4:15 PM EDT Encounter for other screening for malignant neoplasm of breast DIABETES FOOT EXAM Routine 08/13/2023 HEPATITIS C SCREENING Routine 12/30/2018 from Last 3 Months or Most Recently Relevant to Health Maintenance Results * (ABNORMAL) Hemoglobin A1c (01/12/2025 3:53 PM EDT) Pathologist [facility] Hemoglobin A1C 6.5(H) <6.5 % LAB CHEMISTRY METHOD 01/13/2025 10:[address] [facility] Mean Bld Glu Estim. 140 mg/dL LAB CHEMISTRY METHOD 01/13/2025 10:[address] [facility] Blood Venous blood specimen / Unknown Venipuncture / Unknown 01/12/2025 3:53 PM EDT 01/12/2025 3:53 PM EDT Javier Capellan MD LAB BLOOD ORDERABLES Final Resu lt [facility] [address] [place] [address], * External Diabetic Retina Eye Exam Report (12/22/2024) Anatomical Region Laterality Modality Ultrasound us Provider Onbase IMG US PROCEDURES Final Resul t * (ABNORMAL) Basic metabolic panel (11/10/2024 3:38 PM EDT) [facility] Sodium 134 133 - 145 mmol/L LAB CHEMISTRY METHOD 11/10/2024 6:[address] [facility] Potassium 4.7 3.5 - 5.5 mmol/L LAB CHEMISTRY METHOD 11/10/2024 6:[address] [facility] Chloride 100 96 - 110 mmol/L LAB CHEMISTRY METHOD 11/10/2024 6:[address] [facility] CO2 30 21 - 32 mmol/L LAB CHEMISTRY METHOD 11/10/2024 6:[address] [facility] Anion Gap 4 3 - 11 LAB CHEMISTRY METHOD 11/10/2024 6:[address] [facility] Glucose 110(H) 70 - 100 mg/dL LAB CHEMISTRY METHOD 11/10/2024 6:[address] [facility] BUN 16 5 - 25 mg/dL LAB CHEMISTRY METHOD 11/10/2024 6:[address] [facility] Creatinine 0.78 0.50 - 1.10 mg/dL LAB CHEMISTRY METHOD 11/10/2024 6:[address] [facility] eGFR 93 >=60 mL/min/1. 73m2 LAB CHEMISTRY METHOD 11/10/2024 6:[address] [facility] Comment:Calculation based on the Chronic Kidney Disease Epidemiology Collaboration (CKD-EPI) equation refit without adjustment for race. BUN/Creatinine Ratio 20.5 LAB CHEMISTRY METHOD 11/10/2024 6:[address] [facility] Calcium 10.0 8.5 - 10.5 mg/dL LAB CHEMISTRY METHOD 11/10/2024 6:[address] [facility] Blood Venous blood specimen / Unknown Venipuncture / Unknown 11/10/2024 3:38 PM EDT 11/10/2024 3:38 PM EDT Javier Capellan MD LAB BLOOD ORDERABLES Final Resu lt [facility] [address] [place] [address], * Microalbumin creatinine urine ratio (09/29/2024 4:10 PM EDT) Creatinine, Urine 106.0 mg/dL LAB CHEMISTRY METHOD 09/29/2024 7:[address] [facility] Microalb, Ur 8.0 0.0 - 29.0 mg/L LAB CHEMISTRY METHOD 09/29/2024 7:[address] [facility] Microalb/Creat Ratio 8 <30 mg/g creat LAB CHEMISTRY METHOD 09/29/2024 7:[address] [facility] Urine Urine specimen obtained by clean catch procedure / Unknown Non-blood Collection / Unknown 09/29/2024 4:10 PM EDT 09/29/2024 4:10 PM EDT us Gerardo MENDEZ LAB URINE ORDERABLES Fi nal Result [facility] [address] [place] [address], [place] [phone] * (ABNORMAL) Lipid panel with reflex to direct LDL (09/01/2024 4:03 PM EDT) Cholesterol 204(H) 0 - 200 mg/dL LAB CHEMISTRY METHOD 09/01/2024 7:[address] [facility] Triglycerides 297(H) 0 - 150 mg/dL LAB CHEMISTRY METHOD 09/01/2024 7:[address] [facility] HDL 43 >=40 mg/dL LAB CHEMISTRY METHOD 09/01/2024 7:[address] [facility] LDL Calculated 102(H) 0 - 100 mg/dL LAB CHEMISTRY METHOD 09/01/2024 7:[address] [facility] VLDL Cholesterol Terrence 59.4 mg/dL LAB CHEMISTRY METHOD 09/01/2024 7:[address] [facility] Non HDL Chol. (LDL+VLDL) 161(H) <145 mg/dL LAB CHEMISTRY METHOD 09/01/2024 7:[address] [facility] Chol/HDL Ratio 4.7(H) 0.0 - 4.4 LAB CHEMISTRY METHOD 09/01/2024 7:[address] [facility] Blood Venous blood specimen / Unknown Venipuncture / Unknown 09/01/2024 4:03 PM EDT 09/01/2024 4:03 PM EDT Javier Capellan MD LAB BLOOD ORDERABLES Final Resu lt [facility] [address] [place] [address], * CT Lung Screening (08/25/2024 4:07 PM EDT) Anatomical Region Laterality Modality Chest Computed Tomogra phy 08/25/2024 4:34 PM EDT Impressions 08/25/2024 4:43 PM EDT No suspicious mass or nodule. There is some emphysema. Suspect some small airway thickening. LUNG RADS: Lung-RADS 2: BENIGN S Modifier (Significant or Potentially Significant Findings): None present No suspicious nonpulmonary findings. RECOMMENDATIONS: 12 month screening low dose [address] -------- FINAL REPORT -------- Dictated By: [place] Dictated Date: 08/25/2024 16:34 ET Assigned Physician: [place] Reviewed and Electronically Signed By: [place] Signed Date: 08/25/2024 16:43 ET Workstation ID: [id number] Transcribed By: Self Edit Transcribed Date: 08/25/2024 16:34 ET Narrative 08/25/2024 4:43 PM EDT EXAMINATION: CT CHEST WITHOUT CONTRAST LUNG CANCER SCREENING, LOW DOSE CLINICAL INFORMATION: Lung cancer screening. Current smoker COMPARISON: None TECHNIQUE: Multidetector CT. Examination of the chest. Examination of the chest without IV contrast. Reformatting in the coronal and sagittal planes. Device: [employer] Grouper DLP: 168 mGy-cm CTDI: 4.89 Dose optimization was performed including the use of low-dose iterative reconstruction technique with automatic exposure control based on patient size. Type of contrast: None Volume of IV contrast: None Volume of contrast discarded: 0 mL FINDINGS: LUNG: There are trace secretions and barely perceptible diverticula in the trachea and mainstem bronchi which can be seen with chronic inflammation. No focal pneumonia. LUNG NODULES: There are scattered micronodules most of which appear to be secretions within tiny airways. None of these measure greater than 0.3 cm. OTHER PULMONARY: Mild to moderate paraseptal emphysema. There are scattered reticular opacities in the periphery of both lungs without honeycomb formation. MEDIASTINUM: There are no enlarged mediastinal or hilar lymph nodes. No suspicious abnormalities of the esophagus CARDIAC: The heart is not enlarged. No pericardial fluid or thickening There are moderate coronary calcifications. VASCULAR: There is no thoracic aortic aneurysm. The main pulmonary artery is normal caliber PLEURA: There is no pleural fluid or pneumothorax AXILLA/CHEST WALL: There are no enlarged axillary lymph nodes. The chest wall is not completely included. VISUALIZED UPPER ABDOMEN: Suspect fatty change in the liver. MUSCULOSKELETAL: No suspicious focal bony lesion demonstrated. There are some loose bodies adjacent to the left scapula. Procedure Note [place] MD - 08/25/2024 EXAMINATION: CT CHEST WITHOUT CONTRAST LUNG CANCER SCREENING, LOW DOSE CLINICAL INFORMATION: Lung cancer screening. Current smoker COMPARISON: None TECHNIQUE: Multidetector CT. Examination of the chest. Examination of the chest without IV contrast. Reformatting in the coronal and sagittal planes. Device: [employer] Grouper DLP: 168 mGy-cm CTDI: 4.89 Dose optimization was performed including the use of low-dose iterativereconstruction technique with automatic exposure control based on patientsize. Type of contrast: None Volume of IV contrast: None Volume of contrast discarded: 0 mL FINDINGS: LUNG: There are trace secretions and barely perceptible diverticula in thetrachea and mainstem bronchi which can be seen with chronic inflammation.No focal pneumonia. LUNG NODULES: There are scattered micronodules most of which appear to besecretions within tiny airways. None of these measure greater than 0.3 cm. OTHER PULMONARY: Mild to moderate paraseptal emphysema. There arescattered reticular opacities in the periphery of both lungs withouthoneycomb formation. MEDIASTINUM: There are no enlarged mediastinal or hilar lymph nodes. Nosuspicious abnormalities of the esophagus CARDIAC: The heart is not enlarged. No pericardial fluid or thickening There are moderate coronary calcifications. VASCULAR: There is no thoracic aortic aneurysm. The main pulmonary arteryis normal caliber PLEURA: There is no pleural fluid or pneumothorax AXILLA/CHEST WALL: There are no enlarged axillary lymph nodes. The chestwall is not completely included. VISUALIZED UPPER ABDOMEN: Suspect fatty change in the liver. MUSCULOSKELETAL: No suspicious focal bony lesion demonstrated. There aresome loose bodies adjacent to the left scapula. IMPRESSION: No suspicious mass or nodule. There is some emphysema. Suspect some small airway thickening. LUNG RADS: Lung-RADS 2: BENIGN S Modifier (Significant or Potentially Significant Findings): Nonepresent No suspicious nonpulmonary findings. RECOMMENDATIONS: [address] screening low dose [address] -------- FINAL REPORT -------- Dictated By: [place] Dictated Date: 08/25/2024 16:34 ET Assigned Physician: [place] Reviewed and Electronically Signed By: [place] Signed Date: 08/25/2024 16:43 ET Workstation ID: [id number] Transcribed By: Self Edit Transcribed Date: 08/25/2024 16:34 ET Antony Saunders MD IM CT PROCEDURES Final Result * Cologuard?? colon cancer screening (07/06/2024 1:15 PM EST) COLOGUARD Negative Negative [facility] Comment: NEGATIVE TEST RESULT. A negative Cologuard result indicates a low likelihood that a colorectal cancer (CRC) or advanced adenoma (adenomatous polyps with more advanced pre-malignant features) is present. The chance that a person with a negative Cologuard test has a colorectal cancer is less than 1 in 1500 (negative predictive value >99.9%) or has an advanced adenoma is less than 5.3% (negative predictive value 94.7%). These data are based on a prospective cross-sectional study of 10,000 individuals at average risk for colorectal cancer who were screened with both Cologuard and colonoscopy. (Meredith Conteh al, N Engl J Med 2014;370(14):0378-3802) The normal value (reference range) for this assay is negative. COLOGUARD RE-SCREENING RECOMMENDATION: Periodic colorectal cancer screening is an important part of preventive healthcare for asymptomatic individuals at average risk for colorectal cancer. Following a negative Cologuard result, the [place] [employer] and U.S. Multi-Society Task Force screening guidelines recommend a Cologuard re-screening interval of 3 years. References: [employer] Guideline for Colorectal Cancer Screening: https://www.cancer.org/cancer/hspol-ivkeyt-ddprqg/afrpoothd-mbawpbmiq-hnoxokx/ac s-rec ommendations.html.; Song DK, Blake CR, Nathan MckayK, Colorectal Cancer Screening: Recommendations for Physicians and Patients from the U.S. Multi-Society Task Force on Colorectal Cancer Screening , Am J Gastroenterology 2017; 112:1647-3845. TEST DESCRIPTION: Composite algorithmic analysis of stool DNA-biomarkers with hemoglobin immunoassay. Quantitative values of individual biomarkers are not reportable and are not associated with individual biomarker result reference ranges. Cologuard is intended for colorectal cancer screening of adults of either sex, 45 years or older, who are at average-risk for colorectal cancer (CRC). Cologuard has been approved for use by the [place] FDA. The performance of Cologuard was established in a cross sectional study of average-risk adults aged 50-84. Cologuard performance in patients ages 45 to 49 years was estimated by sub-group analysis of near-age groups. Colonoscopies performed for a positive result may find as the most clinically significant lesion: colorectal cancer [4.0%], advanced adenoma (including sessile serrated polyps greater than or equal to 1cm diameter) [20%] or non- advanced adenoma [31%]; or no colorectal neoplasia [45%]. These estimates are derived from a prospective cross-sectional screening study of 10,000 individuals at average risk for colorectal cancer who were screened with both Cologuard and colonoscopy. (Meredith Conteh al, N Engl J Med 2014;370(14):0584-9589.) Cologuard may produce a false negative or false positive result (no colorectal cancer or precancerous polyp present at colonoscopy follow up). A negative Cologuard test result does not guarantee the absence of CRC or advanced adenoma (pre-cancer). The current Cologuard screening interval is every 3 years. ([place] [employer] and [place] Multi-Society Task Force). Cologuard performance data in a 10,000 patient pivotal study using colonoscopy as the reference method can be accessed at the following location: www.[employer]/results. Additional description of the Cologuard test process, warnings and precautions can be found at [email or web address]. Stool 07/06/2024 1:15 PM EST 07/08/2024 11:11 AM EST Result [facility] Gerardo MENDEZ LAB MOLECULAR DIAGNOSTI CS ORDERABLES Final Result [employer] [address] [place] [address] [facility] [address] [place] [address] * Depression Screening (03/18/2024) Depression Screening abstracted Historical Provider MD HEALTH MAINTENANCE Final Result * Cervical Cancer Screening: HPV (11/22/2023) Cervical Cancer Screening: HPV negative, abstracted Historical Provider MD HEALTH MAINTENANCE Final Result * SCREENING MAMMOGRAPHY BI 2-VIEW BREAST INC CAD (09/17/2023 4:15 PM EDT) Anatomical Region Laterality Modality Radiographic Kristen ging 05/22/2022 5:33 PM EST Narrative 09/18/2023 11:54 AM EDT This is a summary report. The complete report is available in the patient's medical record. If you cannot access the medical record, please contact the sending organization for a detailed fax or copy. Full field digital screening tomosynthesis mammography, reviewed with CAD and compared to previous. The breast tissue is heterogeneously dense, limiting sensitivity. No suspicious mass, architectural distortion or suspicious calcifications are identified. IMPRESSION: : Dense breast tissue, limiting the sensitivity of mammography. No mammographic evidence of malignancy. BIRADS 1-Negative; N. 5 year breast cancer risk assessment 1.3 % Lifetime breast cancer risk assessment 12.3 % Breast cancer risk category Low (<15%) Procedure Note Robbin Knox MD - 01/27/2024 This is a summary report. The complete report is available in thepatient's medical record. If you cannot access the medical record, pleasecontact the sending organization for a detailed fax or copy. Full field digital screening tomosynthesis mammography, reviewed with CADand compared to previous. The breast tissue is heterogeneously dense,limiting sensitivity. No suspicious mass, architectural distortion orsuspicious calcifications are identified. IMPRESSION: : Dense breast tissue, limiting the sensitivity of mammography. Nomammographic evidence of malignancy. BIRADS 1-Negative; N. 5 year breast cancer risk assessment 1.3 % Lifetime breast cancer risk assessment 12.3 % Breast cancer risk category Low (<15%) Result [facility] Javier Capellan MD IMG XR PROCEDURES Final Result * Diabetes Foot Exam (08/13/2023) Diabetes: Annual Foot Exam abstracted Historical Provider HEALTH MAINTENANCE Final Result * Hepatitis C Screening (12/30/2018) Hepatitis C Screening abstracted Result [facility] Historical Provider HEALTH MAINTENANCE Final Result from Last 3 Months or Most Recently Relevant to Health Maintenance Insurance [facility] Care Teams Pantograph Watcher Relationship Specialty Start Date End Date Javier Capellan MD [address] [place] [id number] PCP - General Internal Medicine 04/15/24
== END 2025-04-21 12:41 | disposition home or self-care (01) ==
LOC: HO.HSM 12:06
PROVIDERS: PCP Internal Medicine Hematology & Oncology; Referring Provider Internal Medicine Hematology & Oncology; Visit Provider Psychiatry & Neurology Neurology
DX: R25.1 Tremor, unspecified (principal)
CPT/HCPCS: 99214

== ENCOUNTER → 2025-04-21 12:06 | Outpatient (BNVA) | payer OTHER, SELFPAY | PROVIDERS: PCP Internal Medicine Hematology & Oncology; Referring Provider Internal Medicine Hematology & Oncology; Visit Provider Psychiatry & Neurology Neurology | DX: R25.1 Tremor, unspecified (principal); Z79.899 Other long term (current) drug therapy; F17.210 Nicotine dependence, cigarettes, uncomplicated | CPT/HCPCS: 99212 ==